=== PATIENT | female | born 1960 | race Caucasian/White ===

== ENCOUNTER 2024-08-04 08:59 | Outpatient (CLI) | payer OTHER, SELFPAY ==
--- NOTE | ~2024-08-04 | XR_ITS ---
Left Hand Technique: PA, oblique, and lateral views were obtained. Clinical History: Pain Findings: No acute fracture or dislocation is seen. Osseous alignment is anatomic. Joint spaces are p reserved. Soft tissues are unremarkable. Impression: Unremarkable left hand. Reviewed, dictated and finalized at location M. Impression: Unremarkable left hand.
== END 2024-08-04 09:00 | disposition home or self-care (01) ==
PROVIDERS: Visit Provider Plastic Surgery
DX: M25.532 Pain in left wrist (principal)
CPT/HCPCS: 73130